=== PATIENT | female | born 1975 | race Caucasian/White ===

== ENCOUNTER 2020-05-16 14:17 | Outpatient (RCR) | payer OTHER, SELFPAY ==
[2020-05-16] MEDS: COVID-19 VACC, MRNA(PFIZER)/PF 30 MCG/0.3 ML SYRINGE IM (16:25)
[2020-06-06] MEDS: COVID-19 VACC, MRNA(PFIZER)/PF 30 MCG/0.3 ML SYRINGE IM (15:59)
== END 2020-05-16 23:59 ==
LOC: IMMUN 14:17
PROVIDERS: Visit Provider Family Medicine
DX: Z23 Encounter for immunization (principal)
CPT/HCPCS: 0001A; 0002A; 91300

== ENCOUNTER → 2022-06-02 | Outpatient (CLI) | payer OTHER, SELFPAY ==
[2022-06-02 10:46] LABS: Amylase 18 U/L (25-115); Lipase 111 U/L (73-393)
== END | disposition home or self-care (01) ==
DX: R10.9 Unspecified abdominal pain (principal)
CPT/HCPCS: 82150; 83690

== ENCOUNTER 2023-11-06 09:54 | Emergency (ER) | payer OTHER, SELFPAY ==
[2023-11-06 09:55] VITALS: BP 130/83; PULSE 98; RESP 16; TEMP 35.6; O2SAT 99; BMI 25.7
[2023-11-06 10:22] LABS: Mucous, Urine 0 SEEN /hpf (<or=2+); Red Blood Cells-Urine 0 SEEN /hpf (0-5)
[2023-11-06 10:24] LABS: Absolute Lymphocyte Count 1.68 X10^3/uL (0.83-4.51); Absolute Neutrophil Count 7.6 X10^3/uL (2.0-7.7); Basophil# 0.05 X10^3/uL; Basophil% 0.4 % (0-1); Eosinophils% 14.9 % (0-5); Hematocrit 43.1 % (37-47); Hemoglobin 14.7 g/dL (12.0-15.0); Lymphocyte # 1.68 X10^3/ul (0.83-4.51); Lymphocyte % 14.7 % (19-41); Mean Corp Hgb Conc 34.1 g/dL (32-36); Mean Corpuscular Hgb 30.4 pg (27.0-32.0); Mean Platelet Vol. 9.3 fl (6.2-12.0); Monocyte# 0.35 X10^3/uL; Monocyte% 3.1 % (0-10); NRBC Flagged by Analyzer 0 % (0-5); Neutrophil # 7.63 X10^3/uL (2.7-7.7); Neutrophil % 66.7 % (47-70); Platelet Count 288 K/mm3 (150-450); RBC Distribution Width CV 11.9 % (11.6-14.6); RBC Distribution Width SD 38.9 fl (35.1-43.9); Red Blood Count 4.84 M/mm3 (4.2-5.4); White Blood Count 11.4 K/mm3 (4.4-11.0)
[2023-11-06 10:25] LABS: Color, Urine Yellow (Yellow); Glucose, Dipstick Normal (Normal); Ketone-Dipstick Negative (Negative); Leukocyte Esterase-Dipstick 25 /ul (Negative); Nitrite-Dipstick Negative (Negative); Occult Blood-Urine Negative /ul (Negative); Protein-Dipstick Negative (Negative); Specific Gravity, Urine 1.015 (1.002-1.030); Urine Bilirubin Dipstick Negative (Negative); Urine Clarity Clear (Clear); Urine Urobilinogen Normal (Normal)
[2023-11-06 10:39] LABS: ALB/GLOB Ratio 0.8 RATIO (0.9-2.4); AST(SGOT) 16 U/L (15-37); Alanine Aminotransfer ALT/SGPT 20 U/L (13-56); Albumin, Serum 3.8 g/dL (3.2-5.0); Alkaline Phosphatase 87 U/L (45-117); Anion Gap 5 (5-15); BUN 14 mg/dL (7-18); BUN/Creat Ratio 14.7 RATIO (10-20); Calcium,Total 9.4 mg/dL (8.5-10.1); Chloride 106 mmol/L (98-107); Creatinine, Serum 0.95 mg/dL (0.55-1.02); EST Glomerular Filtration Rate 66 mL/min (>60); Est Glom Filt Rate - Afr Amer 80 mL/min (>60); Estimated Creatinine Clearance 65.37 ml/min; Globulin 4.5 g/dL (2.2-4.2); Glucose 109 mg/dL (74-106); Potassium 3.6 mmol/L (3.5-5.1); Protein, Total 8.3 g/dL (6.4-8.2); Sodium Level 138 mmol/L (136-145)
[2023-11-06 10:40] LABS: Internal QC Validated? YES +Cl - CLEAR BKGD; Pregnancy, Serum, hCG Quali. NEGATIVE Negative
[2023-11-06 10:41] LABS: Bacteria 1+ /hpf (None Seen); Squamous Epithelial Cells - UA 0-5 SEEN /hpf (5-10); White Blood Cells 0-5 SEEN /hpf (0-5)
[2023-11-06 10:44] LABS: Lipase 44 U/L (13-75)
--- NOTE | 2023-11-06 10:49 | EKG12_ITS ---
Test Reason : ABD PAIN Blood Pressure : / mmHG Vent. Rate : 080 BPM Atrial Rate : 080 BPM P-R Int : 144 ms QRS Dur : 070 ms QT Int : 370 ms P-R-T Axes : 034 034 018 degrees QTc Int : 426 ms Normal sinus rhythm with sinus arrhythmia Normal ECG Confirmed by TODD BOLTON, CHRISTIANE ([id number]), development editor GISELA STANLEY ([id number]) on 11/07/2023 2:47:11 PM Referred By: Confirmed By:CHRISTIANE BROOKS MD
[2023-11-06] MEDS: Ondansetron 4 MG/2 ML Vial IV (11:00)
[2023-11-06] MEDS: 0.9% Normal Saline (1000mL) 1,000 ML 999 ML IV (11:00)
[2023-11-06] MEDS: Mag /Aluminum/Simeth WCH UDC 30 ML ORAL.SUSP PO (11:00)
[2023-11-06] MEDS: Lidocaine 2% Viscous15 ML UDC 15 ML PO (11:00)
[2023-11-06] MEDS: Pantoprazole Sodium 40 MG in 0.9% Normal Saline (100mL MB+) 100 ML 330 MG IV (11:07)
--- NOTE | 2023-11-06 11:13 | ED.VIS.GI ---
HPI HPI - GI History of Present Illness Chief Complaint: Abd Pain Informant: patient Narrative Narrative: Patient is a 47-year-old female denies any significant past medical history presenting with over 1 week of epigastric abdominal discomfort, intermittent nausea, vomiting diarrhea. She states he had multiple episodes of vomiting last night. She states has been having intermittent diarrhea for the past 9 to 10 days. She planned to go to work throughout the symptoms but her symptoms are worse in the evening and with eating. She states the pain in her epigastric region radiates to her back. She denies any abnormal belching. She is try taking [id number] Tums with a little bit of relief and did take one of her husbands Protonix with no relief of her symptoms. She states she has similar episode about a year and a half ago and was seen at an urgent care and they could not find a cause. States she occasionally drinks alcohol and the night it started had 2 glasses of wine which made her symptoms worse. Denies any black or blood in her vomit or stool. Came in because the symptoms were last night as well as the vomiting. Surgical history includes . Medications include Synthroid for hypothyroidism and oral contraceptive pill. She notes that she takes ibuprofen a couple times a week. Had colonoscopy last year for routine screening which showed a few polyps. Is never had an EGD. PFSH PFSH Home Medications ?Medication ?Instructions ?Recorded ?Last Taken ?Type ondansetron 4 mg disintegrating 4 mg PO Q8H PRN PRN Nausea #10 tabs 11/06/23 Unknown Rx tablet pantoprazole 40 mg tablet,delayed 40 mg PO DAILY #30 tabs 11/06/23 Unknown Rx release sucralfate 1 gram tablet (Carafate) 1 g PO TID 7 days #21 tabs 11/06/23 Unknown Rx Allergy/AdvReac Type Severity Reaction Status Date / Time No Known Allergies Allergy Verified 11/06/23 09:56 Social History Smoking Status: Never smoker ROS ROS ED Constitutional Constitutional ED: Denies chills or fever(s) Cardiovascular Cardiovascular: Denies chest pain Respiratory/Chest Respiratory/Chest: Denies cough or dyspnea Gastrointestinal Gastrointestinal: Reports abdominal pain, diarrhea, nausea and vomiting; Denies melena Genitourinary Genitourinary ED: Denies dysuria Musculoskeletal Musculoskeletal: Denies arthralgias or myalgias Integumentary Denies rash Neurologic Neurologic: Denies headache(s) EXAM Physical Exam Const Vital Signs: 11/06/23 09:55 11/06/23 12:02 Temperature 96.1 F L Temperature Source Temporal Pulse Rate 98 71 Respiratory Rate 16 14 Blood Pressure 130/83 H 118/71 Blood Pressure Mean 98 86 Pulse Ox 99 98 Oxygen Delivery Method Room Air Room Air Positive well nourished and well developed General Appearance ED: well developed and NAD; Negative for pallor HEENT Reports moist mucous membranes normocephalic and atraumatic Eyes EOMs intact bilaterally General Eye ED: Negative for scleral icterus Neck supple and no JVD Resp normal respiratory effort and clear to auscultation bilaterally Cardio regular rate, regular rhythm and no murmurs GI non-distended GI Narrative: No pain on palpation of the right upper quadrant. Negative Mathews sign. Auscultation: normoactive bowel sounds Palpation: soft and tender epigastric; Negative for guarding, rigid or rebound tenderness present Back/Spine Thoracic Spine / Upper Back: Negative for thoracic spinal tenderness Lumbar Spine / Lower Back: Negative for lumbar spinal tenderness Extremity full ROM General Extremety ED: Negative for edema General Extremity: Negative for edema Neuro Sensorium / Orientation: alert, oriented to person, oriented to place and oriented to time Motor Exam: Negative for general weakness Psych mental status grossly normal and thought process normal Skin General Skin Exam: Negative for jaundice or pallor Rashes: no rashes MDM MDM MDM Narrative Medical decision making narrative: Patient is evaluated for ongoing epigastric abdominal pain, nausea vomiting diarrhea. Vital signs are normal. Overall patient is well-appearing. Does have some mild tenderness in the epigastric region on exam. Differential includes is not limited to gastritis, peptic ulcer disease, H. pylori, pancreatitis, referred cardiac pain, gastroenteritis, colitis and biliary colic. Patient will be given IV Protonix, Zofran, IV fluids and a GI cocktail will reevaluate her symptoms. Lab including CBC, CMP, lipase and urinalysis as well as serum is ordered. Patient does have a mild leukocytosis with a white blood cell count of 11.4 which is pretty nonspecific. Hemoglobin is normal. CMP largely normal with normal BUN and creatinine making GI bleed less likely. Urinalysis is relatively unremarkable most consistent with some mild contamination. is negative. Lipase is normal making pancreatitis less likely. EKG obtained which does not show any acute ischemic process on the suspicion for referred cardiac symptoms. Will reevaluate after medications. Patient reevaluated. Nausea is improved. Has some improvement of pain with GI cocktail but still there. Shared decision making performed and decisions made to obtain CT abdomen pelvis at this time. Patient reevaluated. Continues to be stable. CT of the abdomen pelvis does not show any acute process. There is fluid within the endometrial and endocervical canal which would be better evaluated ultrasound. Patient says she is not currently menstruating. I do not think this is related to why she is here today. Counseled if she develops any vaginal bleeding that be consistent with her findings. Otherwise she can follow-up outpatient with her SPA ASSISTANT MANAGER. Will treat her empirically for gastroenteritis versus peptic ulcer disease. Discussed low acid diet, will start her on pantoprazole and give her Carafate for symptoms. Will give referral for GI as she might benefit from EGD. Discussed that the exact cause her symptoms is not clear however her workup is largely normal today and she is stable for outpatient follow-up. Patient verbalized agreement understand this plan. Discharged home in stable condition. Lab Data Attestation: I reviewed the patient's lab results. Labs: Laboratory Results - last 24 hr 11/06/23 10:15 WBC 11.4 H RBC 4.84 Hgb 14.7 Hct 43.1 MCV 89.0 MCH 30.4 MCHC 34.1 RDW Std Deviation 38.9 RDW Coeff of Tomasa 11.9 Plt Count 288 MPV 9.3 Immature Gran % (Auto) 0.200 Neut % (Auto) 66.7 Lymph % (Auto) 14.7 L Swisher % (Auto) 3.1 Eos % (Auto) 14.9 H Baso % (Auto) 0.4 Absolute Neuts (auto) 7.6 Absolute Lymphs (auto) 1.68 Nucleated RBC % 0 Sodium 138 Potassium 3.6 Chloride 106 Carbon Dioxide 27.0 Anion Gap 5 BUN 14 Creatinine 0.95 Estim Creat Clear Calc 65.37 Est GFR (MDRD) Af Amer 80 Est GFR (MDRD) Non-Af 66 BUN/Creatinine Ratio 14.7 Glucose 109 H Calcium 9.4 Total Bilirubin 0.60 AST 16 ALT 20 Alkaline Phosphatase 87 Total Protein 8.3 H Albumin 3.8 Globulin 4.5 H Albumin/Globulin Ratio 0.8 L Lipase 44 Serum , Qual NEGATIVE Urine Color Yellow Urine Clarity Clear Urine pH 6.0 Ur Specific [place] 1.015 Urine Protein Negative Urine Glucose (UA) Normal Urine Ketones Negative Urine Occult Blood Negative Urine Nitrite Negative Urine Bilirubin Negative Urine Urobilinogen Normal Ur Leukocyte Esterase 25 H Urine RBC 0 SEEN Urine WBC 0-5 SEEN Ur Squamous Epith Cells 0-5 SEEN Urine Bacteria 1+ Urine Mucus 0 SEEN Radiography Diagnostic Testing: Clinical Impression(s) from Imaging Studies Abdomen/Pelvis CT 11/06/23 11:39 IMPRESSION: 1. No focal acute inflammatory process 2. Fluid within the endometrial and endocervical canal better evaluated by ultrasound. Electronically Signed: Aidan Chacon MD at 12:16 EDT , Rhythm Strip Rhythm Strip: Sinus Rhythm Rate: 80 Ectopy: None EKG Initial EKG: Attestation: I personally reviewed and interpreted this EKG as follows: Interpretation: Sinus Rhythm Comments: Normal sinus rhythm at a rate of 80 bpm with sinus arrhythmia Normal axis Normal intervals Normal ST segments Discharge Plan Triage Chief Complaint: Abd Pain ED Provider: Anuradha Sarabia Dx/Rx/DC Orders Clinical Impression: Abdominal pain, epigastric, Nausea vomiting and diarrhea Instructions: ED Epigastric Pain Uncertain Cause Prescriptions: New pantoprazole 40 mg tablet,delayed release (DR/EC) 40 mg PO DAILY Qty: 30 0RF sucralfate [Carafate] 1 gram tablet 1 g PO TID 7 Days Qty: 21 0RF Rx Instructions: before meals ondansetron 4 mg tablet,disintegrating 4 mg PO Q8H PRN PRN (Reason: Nausea) Qty: 10 0RF Primary Care Provider: Donna Lopez Referrals: Donna Lopez MD [Primary Care Provider] - Friend,DO Florentino [Med Staff - Active Staff] - 1-2 Weeks Activity Restrictions/Additional Instructions: Your workup was largely normal today. Your white blood cell count was minimally elevated which was nonspecific. Your CT abdomen pelvis did not show any abnormalities to explain her symptoms today. There was a small amount of fluid inside the uterus and around the cervix. I do not think this is related to the symptoms you are experiencing today. Could be related to starting menstrual cycle. This can be followed up with your SPA ASSISTANT MANAGER on a nonemergent basis. Please follow-up with GI for further evaluation of your symptoms as you might require/benefit from an endoscopy to look at your stomach with a scope to further get to the bottom of the cause of your symptoms. In the meantime stick to a low acid diet as we discussed. Avoid taking NSAIDs such as ibuprofen and avoid alcohol. Return to the ER if you have a progression or worsening your symptoms. Print Language: Romanian Disposition Disposition: Home, Self Care
--- NOTE | 2023-11-06 11:39 | CT_ITS ---
STUDY: CT ABDOMEN AND PELVIS WITH CONTRAST REASON FOR EXAM: Female, 47 years old. Epigastric abdominal pain, vomiting and diarrhea RADIATION DOSAGE (If Supplied By Facility): CTDIvol = ( 14.45 ) mGy, DLP = ( 777.10 ) mGycm TECHNIQUE: 100 ML ISOVUE 370 was administered. Transaxial images were obtained from the dome of the diaphragm to the symphysis pubis. Multiplanar coronal and sagittal images were reformatted. The protocol utilizes one or more of the following dose reduction techniques: automated exposure control, adjustment of mA and/or kV according to patient size,and/or use of iterative reconstruction technique. COMPARISON: No relevant prior comparison study available FINDINGS: The visualized lung bases are unremarkable. The visualized portions of the heart are within normal limits. Normal liver. Normal gallbladder and extrahepatic biliary system. Normal spleen. Normal pancreas. Normal bilateral adrenal glands. The stomach is not well distended. Normal in caliber small bowel loops. Fecal retention. The sigmoid colon is not well distended. No evidence of acute diverticulitis. The appendix is visualized and appears normal. Normal abdominal aorta. No retroperitoneal adenopathy. Normal right kidney. Normal left kidney. The bladder is not well distended. Fluid in the endocervical and endometrial canal measuring evaluated by ultrasound. No pelvic mass. Unremarkable abdominal wall. Unremarkable osseous structures. CT/Abdomen/Pelvis W IV Cont ONLY IMPRESSION: 1. No focal acute inflammatory process 2. Fluid within the endometrial and endocervical canal better evaluated by ultrasound. Electronically Signed: Aidan Chacon MD at 12:16 EDT ,
[2023-11-06 12:02] VITALS: BP 118/71; PULSE 71; RESP 14; O2SAT 98
[2023-11-06 13:00] VITALS: BP 121/76; PULSE 98; RESP 14; TEMP 36.6; O2SAT 100
== END 2023-11-06 13:13 | disposition home or self-care (01) ==
PROVIDERS: Emergency Provider Emergency Medicine; PCP Internal Medicine; Visit Provider Emergency Medicine
DX: R10.13 Epigastric pain (principal); R19.7 Diarrhea, unspecified; Z79.890 Hormone replacement therapy; E03.9 Hypothyroidism, unspecified; R11.2 Nausea with vomiting, unspecified
CPT/HCPCS: 74177; 80053; 81001; 83690; 84703; 85025; 93005; 96361; 96374; 96375; 99283; J7030; Q9967; A4216; J2405

== ENCOUNTER 2023-12-30 05:54 | Day surgery (SDC) | payer OTHER, SELFPAY ==
--- NOTE | 2023-12-30 | GASB_PTH ---
PATIENT: LIT ROWE LOC: EN U#:[id number] AGE/SX: 48/F ROOM: RE12/30/[address]: Dr. Florentino Davila DO : 1975 BED: DIS: 12/30/2023 SPEC #: [id number] RECD: 12/30/23 12:51 STATUS: SHAHAB REAdrián #: [id number] NADER: 12/30/23 00:[address]: Florentino Davila DEPT: SURGICAL PATHOLOGY RECD BY: Morris Goldstein ENTERED: 12/30/23 12:51 SP TYPE: Gastric Bx OTHR DR: Dr. Donna Lopez MD Tissues: A - Duodenum, NOS B - Gastric mucous membrane C - Esophageal mucous membrane Procedures: Surgery Specimen Level IV HEADER OPERATION: EGD PRE-OP DIAGNOSAIS: Abdominal pain TISSUE SUBMITTED: A- Duodenum biopsy, B- Gastric antrum biopsy, C- Random esophagus biopsy MICROSCOPIC DIAGNOSIS A. Duodenum, biopsy: Fragments of duodenal mucosa, no pathologic diagnosis. B. Gastric antrum, biopsy: Mild gastritis. See microscopic description and comment. C. Esophagus, random biopsy: Fragments of benign squamous cell epithelium. A few minute fragments of benign gastric epithelium. Intestinal metaplasia (goblet cell metaplasia) not identified. See comment. 01/02/2024 COMMENT B. The results of immunohistochemistry for Helicobacter pylori will be reported separately ([id number]). C. Alcian blue/PAS stain with matched control is used in the evaluation of the specimen. Increased number of eosinophils consistent with eosinophilic esophagitis are not seen. MICROSCOPIC DESCRIPTION Slides are reviewed. B. The specimen shows fragments of gastric mucosa with chronic inflammatory cell infiltrates in the lamina propria consisting of lymphocytes and plasma cells, consistent with mild chronic gastritis. GROSS DESCRIPTION A. Received in fixative is one container labeled with the patient's name and designated Duodenum biopsy. The specimen consists of multiple irregular fragments of light maciel soft tissue that in aggregate measure 1.0 x 0.4 x 0.1 cm. The specimen is totally submitted in one cassette. B. Received in fixative is one container labeled with the patient's name and designated Gastric antrum biopsy. The specimen consists of two irregular fragments of light maciel soft tissue that in aggregate measure 0.8 x 0.4 x 0.1 cm. The specimen is totally submitted in one cassette. C. Received in fixative is one container labeled with the patient's name and designated Random esophagus biopsy. The specimen consists of multiple irregular fragments of light maciel soft tissue that in aggregate measure 0.9 x 0.6 x 0.1 cm. The specimen is totally submitted in one cassette. SJ.mr 12/30/2023 TC:3 CPT:74014d6, 04811
[2023-12-30 06:22] LABS: Internal QC Validated? YES +Cl - CLEAR BKGD; Pregnancy, Urine Negative Negative
[2023-12-30 06:26] VITALS: BP 94/75; PULSE 86; RESP 16; TEMP 36.6; O2SAT 98; BMI 25.4
[2023-12-30 06:54] VITALS: BP 94/75; PULSE 86; RESP 16; TEMP 36.6; O2SAT 98
--- NOTE | 2023-12-30 06:54 | PCM.PRE.AN2 ---
ASA Classification* ASA Classification ASA Classification: 2 (SEE WRITTEN PRE ANESTHESIA RECORD FOR FULL ASSESSMENT) Assessment & Plan Anesthesia* Anesthesia Assessment Anesthesia Assessment: Discussed sedation and/or anesthesia options, risks, benefits, and alternatives with patient/parents/legal guardian/POA. Questions invited. The patient/parents/legal guardian/POA seems to understand and agrees to proceed with anesthesia plan. Reviewed the physical assessment, medical history, allergy history and patient home medications list prior to surgery/procedure/anesthetic and documented any changes. Performed airway and anesthesia risk assessments. Anesthesia Type Anesthesia Type: MAC (SEE WRITTEN PRE ANESTHESIA RECORD FOR FULL ASSESSMENT) Anesthesia Focused Assessment* Temperature: 97.8 F Pulse Rate: 86 Blood Pressure: 94/75 Respiratory Rate: 16 Pulse Ox: 98 Airway Assessment Mouth opens: >3 cm Mallampati Score: II Focused Labs Anesthesia Preop lab: CBC WBC 11.4 K/mm3 (4.4-11.0) H 11/06/23 10:15 RBC 4.84 M/mm3 (4.2-5.4) 11/06/23 10:15 Hgb 14.7 g/dL (12.0-15.0) 11/06/23 10:15 Hct 43.1 % (37-47) 11/06/23 10:15 Plt Count 288 K/mm3 (150-450) 11/06/23 10:15 CHEMISTRY Potassium 3.6 mmol/L (3.5-5.1) 11/06/23 10:15 Sodium 138 mmol/L (136-145) 11/06/23 10:15 BUN 14 mg/dL (7-18) 11/06/23 10:15 Creatinine 0.95 mg/dL (0.55-1.02) 11/06/23 10:15 Glucose 109 mg/dL (74-106) H 11/06/23 10:15 COAG Urine Test Negative Negative 12/30/23 05:55 Pre-Assessment Diagnosis/Proposed Procedure Planned Operative Procedure(s): EGD Anesthesia History 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 When Was Last Pacemaker Check QUESTION #4 FULL TEXT: You/Your Family Experience fever (hyperthermia) with Anesthesia Last Oral Intake Last Oral intake: Last Oral Intake NPO since 00:00 12/30/23 06:26 Meds taken in AM with sips of Yes 12/30/23 06:26 water? Meds patient instructed to levthyroxine 12/30/23 06:26 take am of surgery PONV PONV - stock house worker: PONV - stock house worker Female Yes 12/28/23 10:15 HX of Motion Sickness Yes 12/28/23 10:15 HX of N/V After Surgery No 12/28/23 10:15 Non-Smoker Yes 12/28/23 10:15 Duration of Surgery greater No 12/28/23 10:15 than 60 minutes Number of Risk Factors 3 12/28/23 10:15 PONV Score Moderate Risk 12/28/23 10:15 Height & Weight Height & Weight: Anesthesia: Height & Weight Height 5 ft 3 in 12/30/23 06:26 Weight: 65 kg 12/30/23 06:26 Body Mass Index (BMI) 25.4 12/30/23 06:26 Respiratory Assessment Respiratory Assessment - stock house worker: Respiratory Tract Infection Hx - stock house worker Hx Respiratory Tract Infection No 12/28/23 10:15 STOP Sleep Apnea STOP Sleep Apnea - stock house worker: STOP Sleep Apnea - stock house worker Hx Hypertension No 12/28/23 10:15 Hx Sleep Apnea No 12/28/23 10:15 CPAP BIPAP Do you snore loudly (louder No 12/28/23 10:15 than talking or can be heard Do you often feel tired/ No 12/28/23 10:15 fatigued/ sleepy during daytime? Has anyone observed you stop No 12/28/23 10:15 breathing during sleep? STOP Results Negative 12/28/23 10:15 QUESTION #5 FULL TEXT : Do you snore loudly (louder than talking or can be heard through closed doors)? 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 Specify any problems Hx of Preganancy in last 3 No 12/28/23 10:15 Months Nurse Filling Out Transfusion VCHRISTIN 12/28/23 10:15 & Questions: Date: 12/28/23 12/28/23 10:15 Time: 10:16 12/28/23 10:15 Patient unable to answer at this time (ie. confused, unrespo /Reproduction History /Reproductive History - stock house worker: /Reproductive Hx- stock house worker Hx Now No 12/28/23 10:15 Gestational Age (in weeks): EDC: Hx Hx Para Hx Section SAB No 12/28/23 10:15 [facility] Medical History Wears glasses Thyroid disease Gastric reflux Non-smoker Hypothyroidism GERD (gastroesophageal reflux disease) Adenomyosis Home Medications ?Medication ?Instructions ?Recorded ?Last Taken ?Type levothyroxine 75 mcg tablet 75 mcg PO QAM 11/21/23 12/30/23 History norethindrone (contraceptive) 0.35 0.35 mg PO QDAY 11/21/23 12/29/23 History mg tablet (Jencycla) pantoprazole 40 mg tablet,delayed 40 mg PO BID #60 tabs 11/21/23 12/26/23 Rx release biotin 10,000 mcg capsule 10,000 mcg PO DAILY 12/28/23 12/29/23 History Allergy/AdvReac Type Severity Reaction Status Date / Time No Known Allergies Allergy Verified 12/28/23 10:09 Family History Other Diabetes Hypercholesteremia Hypertension Osteoporosis Parkinson's disease Thyroid disorder Surgical History History of delivery Social History Smoking Status: Never smoker alcohol intake: current alcohol intake frequency: a few times a week substance use type: does not use what type of physical activity do you participate in: walking frequency: 3-4 times per week Review of Systems (Anesthesia) ROS Narrative System reviewed and no additional complaints, except as documented.
--- NOTE | 2023-12-30 07:00 | IMM_PTH ---
PATIENT: LIT ROWE LOC: EN U#:[id number] AGE/SX: 48/F ROOM: RE12/30/[address]: Dr. Florentino Davila DO : 1975 BED: DIS: 12/30/2023 SPEC #: [id number] RECD: 12/30/23 13:08 STATUS: SHAHAB REQ #: [id number] NADER: 12/30/23 07:[address]: Florentino Davila DEPT: IMMUNOHISTOCHEMISTRY RECD BY: Aneudy Lara ENTERED: 12/30/23 13:08 SP TYPE: IMMUNO OTHR DR: Dr. Donna Lopez MD Tissues: B - Gastric mucous membrane Procedures: H Pylori (initial) PHYSICIAN & INSTITUTION [place] [id number] SPECIMEN INFORMATION: Tissue Source: B- Gastric antrum biopsy Clinical Info: Abdominal pain Specimen Number: [id number] CPT code: 80886 METHODOLOGY: Deparaffinized sections of prefer/formalin-fixed tissue or PAP/DQ stained slides are incubated with monoclonal/polyclonal antibodies/oligonucleotide probes. Localization is made via biotin free immunoperoxidase method. Appropriate controls are performed and reacted as expected. Results on target cell population are indicated in the following table: RESULTS: ANTIBODY / CLONE RESULT Block B H Pylori (polyclonal) negative These tests were developed and their performance characteristics determined by [facility]. They may not have been cleared or approved by the [place]. Food and Drug Administration. The FDA has determined that such clearance or approval is not necessary. The above immunohistochemical/dualISH markers are ordered and reviewed by the Pathologist. INTERPRETATION: B. Gastric antrum, biopsy: Negative for Helicobacter pylori organisms. 01/02/2024
--- NOTE | 2023-12-30 07:13 | HP.PCM_ITS ---
History and Physical Date of Admission: 12/30/23 LIT ROWE, is a 47 F who presents to the office today for establishment with [facility] for complaints of severe epigastric substernal chest pain that radiates into her shoulders for the last 4 weeks. She reports an emergency room visit on 11/06/23 when the pain began radiating and stated it was unlike any pain she'd experienced before, with nausea and vomiting. Abd/pelvis CT reports no acute abdominal process. She reports frequent ingestion of ibuprofen for uterine adenomyosis. She reports alcohol ingestion of wine 2-3 times a week and eating dinner later in the night due to her kids' sporting events. Since the ER visit, she reports using pantoprazole 40mg daily, used the sucralfate for 7 days as prescribed, and occasionally still uses Pepcid and Tums. She reports stopping the alcohol consumption, trying her best to not eat so late at night, and reducing the amount of higher fat foods. She states she continues to have the midepigastric burning pain and it will still go to her back but not as frequently. She denies nausea, vomiting, diarrhea, bloating, excessive gas. She reports BMs did slow down while on the sucralfate, but back to daily BMs of complete evacuation without pain. She reports history of successfully using probiotics when she feels excessively bloated and experiencing abnormal amounts of gas. She denies fever, chills, hematochezia, melena. ROS Const Constitutional: No fatigue, fever(s), frequent falls, headache(s), weakness or weight change Eyes Eyes: No change in vision ENT ENT: No abnormal hearing, headache(s) or difficulty swallowing Resp Respiratory: No cough Cardio Cardiology: No leg pain with exertion Gastro GI: Positive for bloating and heartburn; No abdominal pain, change in bowel habits, constipation, diarrhea, difficulty swallowing, excessive flatus, Vomiting blood/hematemesis, Blood in stool, nausea/dyspepsia or vomiting Genitourinary-Female: No difficulty urinating Musc Musculoskeletal: Positive for back pain; No joint pain, joint swelling, muscle cramps, muscle weakness, numbness, stiffness, tingling, Arthritis, sciatica, restless legs, leg pain at night or leg pain with exertion Skin Skin: No dry skin, yellowing of the eye, lesions, itchy eyes or rash Neuro Neurology: No abnormal hearing, behavioral changes, unsteady gait/balance, weakness, frequent falls, headache(s), numbness, tingling, restless legs, tremor(s), Increased tone in limbs, paralysis or seizures Psych Psychiatric: No anxiety, No behavioral changes, No depression, No paranoia, No Compulsive Behavior, No hyperactivity, No inattentiveness, No obsessions/compulsions, No Temper Tantrums and No suicidal ideation Endo Endocrine: No cold intolerance, fatigue, heat intolerance or weight change Aller/Imm Allergy/Immunologic: No food intolerance or itchy eyes Jethro/Lymp Hematologic/Lymphatic: No easy bleeding or easy bruising Exam Const General: cooperative, healthy appearing and comfortable Nutritional Appearance: average body habitus Orientation: alert HENMT Head: normal to inspection Ears: hearing grossly normal bilaterally Nose: external nose normal Face and sinus: normal facial exam and face symmetric Eyes General: appearance normal, both eyes and all related structures Sclera: sclerae normal Neck Neck: normal visual inspection and full ROM Neck mass: No Chest Chest palpation & inspection: normal inspection of the chest Resp Effort & Inspection: normal respiratory effort, able to speak in complete sentences and symmetric chest movement GI Inspection: normal to inspection Palpation: soft and no hepatosplenomegaly Skin General: no rashes or lesions noted Neuro General: patient alert, patient awake and patient oriented x3 Cognition: normal cognition Speech: speech normal Gait: normal gait Extrem General: full ROM Psych Appearance: well kempt Assessment and Plan Assessment and Plan (1) Abdominal pain: Qualifiers: Abdominal location: epigastric Qualified Code(s): R10.13 - Epigastric pain Medications: Changed From pantoprazole 40 mg PO DAILY 30 tabs 0RF To pantoprazole Stop use 5 days before scheduled EGD. 40 mg PO BID 60 tabs 2RF Patient Instructions: LIT ROWE, is a 47 F who presents to the office today for establishment with [facility] for complaints of severe epigastric substernal chest pain that radiates into her shoulders for the last 4 weeks. Differential diagnoses include: GERD, gastritis, h. pylori infection, peptic ulcer. * increase pantoprazole 40mg PO to BID * OK to use famotidine OTC PRN breakthrough heartburn * schedule EGD d/t alarm symptoms and history of NSAID use I have examined the patient and the H&P has been reviewed. There are no clinical changes since date of exam.
--- NOTE | 2023-12-30 07:53 | OP.EGD_ITS ---
Patient Name: Linda Lund Procedure Date: 12/30/2023 7:39 AM Date of : 1975 Age: 48 Procedure: Upper GI endoscopy Indications: Epigastric abdominal pain Providers: Florentino Davila DO Referring MD: Donna Lopez Medicines: Monitored Anesthesia Care Patient Profile: This is a 48 year old female. Refer to note in patient chart for documentation of history and physical. Patient has symptoms. Complications: No immediate complications. Procedure: Pre-Anesthesia Assessment: - Prior to the procedure, a History and Physical was performed, and patient medications and allergies were reviewed. The patient is competent. The risks and benefits of the procedure and the sedation options and risks were discussed with the patient. All questions were answered and informed consent was obtained. Patient identification and proposed procedure were verified by the physician in the pre-procedure area. Mental Status Examination: alert and oriented. Airway Examination: normal oropharyngeal airway and neck mobility. Respiratory Examination: clear to auscultation. CV Examination: normal. Prophylactic Antibiotics: The patient does not require prophylactic antibiotics. Prior Anticoagulants: The patient has taken no anticoagulant or antiplatelet agents except for NSAID medication. ASA Grade Assessment: II - A patient with mild systemic disease. After reviewing the risks and benefits, the patient was deemed in satisfactory condition to undergo the procedure. The anesthesia plan was to use monitored anesthesia care (MAC). Immediately prior to administration of medications, the patient was re-assessed for adequacy to receive sedatives. The heart rate, respiratory rate, oxygen saturations, blood pressure, adequacy of pulmonary ventilation, and response to care were monitored throughout the procedure. The physical status of the patient was re-assessed after the procedure. After obtaining informed consent, the endoscope was passed under direct vision. Throughout the procedure, the patient's blood pressure, pulse, and oxygen saturations were monitored continuously. The gastroscope was introduced through the mouth, and advanced to the second part of duodenum. The upper GI endoscopy was accomplished with ease. The patient tolerated the procedure well. Scope In: 7:46:08 AM Scope Out: 7:49:46 AM Total Procedure Duration Time 0 hours 3 minutes 38 seconds Findings: The examined esophagus was normal. Biopsies were obtained from the proximal and distal esophagus with cold forceps for histology of suspected eosinophilic esophagitis. Patchy mildly erythematous mucosa without bleeding was found in the gastric antrum. Biopsies were taken with a cold forceps for histology. Verification of patient identification for the specimen was done. Estimated blood loss was minimal. Biopsies were taken with a cold forceps for Helicobacter pylori testing. Verification of patient identification for the specimen was done. Estimated blood loss was minimal. Patchy mildly erythematous mucosa without active bleeding and with no stigmata of bleeding was found in the duodenal bulb. Biopsies were taken with a cold forceps for histology. Biopsies were taken with a cold forceps for histology. Verification of patient identification for the specimen was done. Estimated blood loss was minimal. Impression: - Normal esophagus. - Erythematous mucosa in the antrum. Biopsied. - Erythematous duodenopathy. Biopsied. - Biopsies were taken with a cold forceps for evaluation of eosinophilic esophagitis. Recommendation: - Discharge patient to home. - Resume previous diet. - Continue present medications. - Await pathology results. Procedure Code(s): --- Professional --- 19691, Esophagogastroduodenoscopy, flexible, transoral; with biopsy, single or multiple CPT copyright 2021 [employer]. All rights reserved. The codes documented in this report are preliminary and upon mine supervisor review may be revised to meet current compliance requirements. Florentino Davila DO 12/30/2023 7:53:35 AM This report has been signed electronically. Number of Addenda: 0 Note Initiated On: 12/30/2023 7:39 AM
--- NOTE | 2023-12-30 07:54 | OP.CCLET_ITS ---
12/30/2023 Donna Lopez [address] [place] [address] Re : Upper GI endoscopy procedure for Linda Lund Dear Dr. Lopez This procedure was performed on Saturday, December 30, 2023. My impressions and recommendations are as follows: Impressions : - Normal esophagus. - Erythematous mucosa in the antrum. Biopsied. - Erythematous duodenopathy. Biopsied. - Biopsies were taken with a cold forceps for evaluation of eosinophilic esophagitis. Recommendations : - Discharge patient to home. - Resume previous diet. - Continue present medications. - Await pathology results. My findings are described in the full procedure note, which is enclosed. If I can be of further assistance, please feel free to contact me at . Sincerely, Florentino Davila, 12/30/2023 7:53:35 AM This report has been signed electronically.
[2023-12-30 07:55] VITALS: BP 108/76; BP 94/75; PULSE 92; RESP 16; TEMP 36.6; O2SAT 95
--- NOTE | 2023-12-30 07:59 | PCM.POST.ANE ---
Anesthesia: Postop Eval I Current Vital Signs Temperature: 97.8 F Pulse Rate: 90 Blood Pressure: 108/76 Respiratory Rate: 16 Pulse Ox: 98 Oxygen Delivery Method: Room Air Assessment Airway patent: Yes Spontaneous unlabored respirations: Yes Mental status: Awake and Calm nausea: No Vomiting: No Anesthesia Complication: No Fluid Hydration Crystalloid volume administer (ml): 30 Total IV fluid infused: 30 Progress Note Anesthesia document: Postop Eval 1 completed: Yes
[2023-12-30 08:00] VITALS: BP 104/78; BP 108/76; BP 94/75; PULSE 89; PULSE 90; RESP 16; TEMP 36.6; O2SAT 95; O2SAT 98
--- NOTE | 2023-12-30 08:04 | PCM.POSTANE2 ---
Anesthesia Postop Eval I Sum Postop Eval Completion status Anesthesia document: Postop Eval 1 completed: Yes Anesthesia Postop Eval I Summary Anesthesia Postop Eval I Summary: Anesthesia Postop Eval I: Assessment Summary Airway patent Yes 12/30/23 08:00 [email or web address] Spontaneous unlabored Yes 12/30/23 08:00 [email or web address] respirations Mental status Awake,Calm 12/30/23 08:00 [email or web address] nausea No 12/30/23 08:00 [email or web address] Vomiting No 12/30/23 08:00 [email or web address] Anesthesia Postop Eval I: Fluid Summary Crystalloid volume administer 30 12/30/23 08:00 [email or web address] (ml) Colloids volume administered ( ml) Blood Product volume administered (ml) Total IV fluid infused 30 12/30/23 08:00 [email or web address] Anesthesia Postop Eval I: Summary Notes Anesthesia Complication No 12/30/23 08:00 [email or web address] Anesthesia Complication Comment: Post-operative progress note Anesthesia: Postop Eval II Evaluation Mental status: Awake Pain Level: 0 nausea: No Vomiting: No
[2023-12-30 08:05] VITALS: BP 108/77; BP 94/75; PULSE 87; RESP 16; TEMP 36.4; O2SAT 97
[2023-12-30 08:20] VITALS: BP 94/75
== END 2023-12-30 08:22 | disposition home or self-care (01) ==
LOC: EN 05:56 → AC 05:57
PROVIDERS: Anesthesiology; PCP Internal Medicine; Referring Provider Internal Medicine; Visit Provider Internal Medicine Gastroenterology
PROC: 0DJ08ZZ Inspection of Upper Intestinal Tract, Via Natural or Artificial Opening Endoscopic (ICD-10-PCS; CPT 43235; principal; 2023-12-30 06:55)
DX: K29.70 Gastritis, unspecified, without bleeding (principal); K21.9 Gastro-esophageal reflux disease without esophagitis; E03.9 Hypothyroidism, unspecified; Z79.899 Other long term (current) drug therapy; Z79.890 Hormone replacement therapy
CPT/HCPCS: 43239; 81025; 88305; 88342; A4216; J2405

== ENCOUNTER → 2024-02-17 | Outpatient (CLI) | payer OTHER, SELFPAY ==
--- NOTE | 2024-02-17 09:11 | US_ITS ---
INDICATION: epigastric pain EXAMINATION: US Abdomen RUQ (limited) TECHNIQUE: Evans-scale and color Doppler imaging was performed of the right upper abdominal quadrant. COMPARISON: None. Findings: The liver is diffusely homogenous with overall increased echogenicity. There is no evidence of contour nodularity. No focal hepatic mass is identified. The main portal vein is normal in size and patent demonstrating hepatopetal flow. The gallbladder is unremarkable without evidence of stones, wall thickening or pericholecystic fluid. Sonographic Mathews''s tenderness is not appreciated. There is no evidence of intrahepatic biliary ductal dilatation. The CBD is nondilated measuring 3 mm at the level of the karen hepatis. The visualized portions of the pancreas are unremarkable without evidence of focal or diffuse enlargement. Specifically, the body and tail is obscured by overlying bowel gas. Right kidney measures 9.4 cm in length. It is normal in echogenicity. No focal renal lesion is identified. There is no evidence of hydronephrosis. US/Abdomen Limited IMPRESSION: Hyperechoic liver without evidence of contour nodularity. Findings are nonspecific and may be consistent with sequelae of fatty infiltration or other forms of diffuse liver disease. No evidence of focal hepatic mass. No other abnormal findings. Electronically Signed: Steven Gardner MD at 17:51 EST ,
== END | disposition home or self-care (01) ==
LOC: US 09:05
PROVIDERS: PCP Internal Medicine; Referring Provider Nurse Practitioner Acute Care; Visit Provider Nurse Practitioner Acute Care
DX: R10.13 Epigastric pain (principal)
CPT/HCPCS: 76705

== ENCOUNTER → 2024-03-29 | Outpatient (CLI) | payer OTHER, SELFPAY ==
[2024-03-29 09:52] LABS: Hepatitis B Surface Antibody Non-Reactive; Hepatitis B Surface Antigen Non-Reactive (Nonreactive); Hepatitis C Antibody Non-Reactive (Nonreactive)
[2024-03-30 05:06] LABS: Hepatitis A AB, Total Negative (Negative); Hepatitis B Core Ab Total Negative (Negative)
== END | disposition home or self-care (01) ==
PROVIDERS: PCP Internal Medicine; Referring Provider Nurse Practitioner Acute Care; Visit Provider Nurse Practitioner Acute Care
DX: R10.13 Epigastric pain (principal); K76.0 Fatty (change of) liver, not elsewhere classified
CPT/HCPCS: 36415; 86704; 86706; 86708; 86803; 87340